=== PATIENT | male | born 1955 | race Caucasian/White ===

== ENCOUNTER 2021-06-03 02:10 | Emergency (ER) | payer MEDICAID ==
[~2021-06-03] VITALS: Ht 182.9 cm; Wt 77.1 kg
--- NOTE | 2021-06-03 02:26 | NUR ---
PATIENT TAKEN TO CT
--- NOTE | 2021-06-03 02:29 | NUR ---
[facility] CALLED TO FILE REPORT, [employer] WILL NOT SEND [employer]ERS FOR REPORT SINCE PATIENT REFUSES TO GIVE A REPORT.
--- NOTE | 2021-06-03 03:14 | NUR ---
Patient given written and verbal discharge instructions. Patient verbalizes understanding of instructions. Patient is ambulatory with steady gait. Refuses offer of custodial placement. Patient given list of available shelters in surrounding area.
[2021-06-03 03:16] VITALS: BP 105/68
== END 2021-06-03 03:19 | disposition home or self-care (01) ==
LOC: ER 02:13
DX: S01.01XA Laceration without foreign body of scalp, initial encounter (principal); S09.90XA Unspecified injury of head, initial encounter; Z60.2 Problems related to living alone; Z59.00 Homelessness unspecified; Y08.89XA Assault by other specified means, initial encounter; Y93.89 Activity, other specified; Y92.89 Other specified places as the place of occurrence of the external cause; Y99.8 Other external cause status
CPT/HCPCS: 70450-TC